=== PATIENT | female | born 1995 | race Two or more races ===

== ENCOUNTER 2020-12-01 00:03 | Emergency (ER) | payer MEDICAID ==
[~2020-12-01] VITALS: Ht 175.3 cm; Wt 71.2 kg
--- NOTE | 2020-12-01 00:27 | Emergency Room Report ---
History of Present Illness General Chief Complaint: Skin Rash/Abscess Source: Patient Present Illness HPI The patient presents with several days of increasing pain in the gluteal cleft. She denies any fevers or chills. She was seen in urgent care and begun on Bactrim Keflex. Pain is severe at this time and she is unable to sleep. She is not taking any medication for pain although she believes that the antibiotics were prescribed to help the pain. She denies any drainage. She is on her menstruation at this time. She denies fevers or chills. There is no numbness. Patient reports that she had this incised and drained 1 time before 8 years ago. The patient is uncertain when her last tetanus vaccination was. The patient denies exposure to Covid positive contacts. Allergies: Coded Allergies: No Known Allergies (Unverified , 12/01/20) COVID-19 Screening Contact w/high risk pt: No Experienced COVID-19 symptoms?: No COVID-19 Testing performed SECTION BEAMER: No Patient History Past Medical History: see triage record Past Surgical History: other - Pilonidal cyst Social History Narrative Brought by father Last Menstrual Period: 11/28/2020 Now: No Reviewed Nursing Documentation: PMH: Agreed; PSxH: Agreed Review of Systems Constitutional: Reports: see HPI Gastrointestinal: Denies: abdominal pain Genitourinary: Reports: see HPI Musculoskeletal: Reports: see HPI Skin: Reports: see HPI Neurological: Reports: see HPI Physical Exam Vital Signs Date Time Temp Pulse Resp B/P (MAP) Pulse Ox O2 Delivery O2 Flow Rate FiO2 12/01/20 00:12 99.3 115 20 119/71 (87) 99 Room Air Sp02 EP Interpretation: reviewed, normal General Appearance: well appearing, no apparent distress, GCS 15, non-toxic Head: normocephalic Eyes: bilateral eye normal inspection, bilateral eye PERRL, bilateral eye EOMI ENT: other - Wearing mask Neck: normal inspection Respiratory: normal inspection Cardiovascular #1: regular rate, rhythm Cardiovascular #2: 2+ radial (L) Gastrointestinal: normal inspection Musculoskeletal: gait/station normal Neurologic: alert Skin: other - Pilonidal swelling without erythema. There is fluctuance and evidence of prior incision and drainage Procedures Incision and Drainage Incision and Drainage : Consent: Verbal Site: Pilonidal cyst Blade Size: 11 I & D Procedure: betadine prep, sterile drapes applied, sterile dressing applied, gauze wick placed Wound Location: other - Gluteal cleft upper Wound's Depth, Shape: superficial Wound Length (cm): 1 - 1.5 Wound Explored: contaminated - Copious amounts of pus obtained Irrigated w/ Saline (ccs): 10 Anesthesia: Lidocaine w/ Epi Volume Anesthetic (ccs): 4 Splint Applied?: No Patient Tolerated: Well Complications: None Medical Decision Making Diagnostic Impression: Primary Impression: Pilonidal abscess ER Course The patient presents with a pilonidal cyst. Due to the fluctuance incision and drainage is indicated. There is no systemic signs of toxicity. The patient will be treated with Percocet. Lidocaine jelly will be applied topically. The wound will be incised and drained. Please see procedure note. Copious amounts of pus obtained. Patient tolerated the procedure well. Discussed treatment plan with patient and the probable need for surgical correction of this lesion. Patient advised to return in 2 days for drain removal and reassessment. Patient stable for outpatient observation and treatment. Last Vital Signs Date Time Temp Pulse Resp B/P (MAP) Pulse Ox O2 Delivery O2 Flow Rate FiO2 12/01/20 00:47 99.3 20 119/71 99 Room Air 12/01/20 00:12 115 Status: improved Disposition: HOME, SELF-CARE Condition: Improved Referrals: NOT CHOSEN IPA/,REFERRING (PCP) Jayson Mejia MD Dec 01, 2020 00:27
[2020-12-01] MEDS ORDERED: Bactrim-DS 1 tab ORAL ONE (00:30)
[2020-12-01] MEDS ORDERED: oxyCODONE HCL/Acetaminophen 5/325mg ORAL ONE (00:30)
[2020-12-01] MEDS ORDERED: Tetanus/Diptheria/Pertussis IM ONE (00:30)
[2020-12-01] MEDS ORDERED: Lidocaine HCl 2% Jelly 6ml Tube TOPIC ONE (00:30)
[2020-12-01] MEDS ORDERED: Lidocaine 1% 10mg/ml/Epi 0.005mg/ml 30ml vial INJ ONE (00:30)
[2020-12-01 00:47] VITALS: BP 119/71
--- NOTE | 2020-12-01 00:53 | NUR ---
pt medicated per dec. in tx rm for eval
[2020-12-01] MEDS ORDERED: Lidocaine 2% MPF 5ml Vial INJ ONE (00:59)
[2020-12-01] MEDS ORDERED: Lidocaine 2% 20mg/ml/Epi 0.005mg/ml 20ml vial ONE (01:02)
--- NOTE | 2020-12-01 01:18 | NUR ---
pt aox3 given and understands dsicharge instructions. ambulatory out with steady gait
== END 2020-12-01 01:25 | disposition home or self-care (01) ==
LOC: EMR 00:22
DX: L05.01 Pilonidal cyst with abscess (principal); Z23 Encounter for immunization
CPT/HCPCS: 10060; 90471; 90715; Z7502; 99282

== ENCOUNTER 2020-12-03 18:32 | Emergency (ER) | payer MEDICAID ==
[~2020-12-03] VITALS: Ht 175.3 cm; Wt 71.2 kg
--- NOTE | 2020-12-03 18:40 | NUR ---
ED Nurse Note: Patient walked into the ED for gauze to be removed as adviced by ERMD at upper gluteal area after abscess removal. Pt denies fever/chills. Pt AAOx4 and ambulatory. ERMD at bedside
--- NOTE | 2020-12-03 18:58 | Emergency Room Report ---
History of Present Illness General Chief Complaint: Wound Recheck/Suture Removal Source: Patient Present Illness HPI Disclaimer: Please note that this report is being documented using [employer] technology. This can lead to erroneous entry secondary to incorrect interpretation by the dictating instrument. HPI: 25-year-old female presents for packing removal from wound. Patient had a pilonidal cyst drained from the left gluteus last week. Gauze wick was placed. She reports continued drainage. Pain is resolved. Continues to take antib iotics. No other symptoms or complaints at this time. PMH: Reviewed PSH: Reviewed Allergies: Reviewed Social Hx: Reviewed Allergies: Coded Allergies: No Known Allergies (Unverified , 12/01/20) COVID-19 Screening Contact w/high risk pt: No Experienced COVID-19 symptoms?: No COVID-19 Testing performed MANAGER FIELD INVESTIGATIONS: No COVID-19 Screening: Negative COVID-19 COVID-19 Testing Source: forum Patient History Now: No Nursing Documentation-PMH Past Medical History: No Stated History Review of Systems All Other Systems: negative except mentioned in HPI Physical Exam Vital Signs Date Time Temp Pulse Resp B/P (MAP) Pulse Ox O2 Delivery O2 Flow Rate FiO2 12/03/20 18:38 98.4 83 20 109/68 (82) 98 General: Awake and alert, no acute distress HEENT: NC/AT. EOMI. Resp: Normal work of breathing Skin: Gauze wick is in place in the gluteal fold wound. Mild serous drainage. Mild surrounding edema and induration. No palpable warmth. No bleeding. MSK: Normal tone and bulk. Moving all extremities. No obvious deformity. Neuro: Awake and alert. Mentating appropriately Medical Decision Making Diagnostic Impression: Primary Impression: Encounter for wound re-check ER Course 25-year-old female presents for packing removal of pilonidal cyst drainage site. Gauze wick was removed without complication. Able to express some mild amount of serous fluid. No significant purulent drainage or bleeding. Her pain is resolved. She continues on antibiotics. Clean dressing applied. Will follow up with PMD and return with new or worsening symptoms. Last Vital Signs Date Time Temp Pulse Resp B/P (MAP) Pulse Ox O2 Delivery O2 Flow Rate FiO2 12/03/20 18:38 98.4 83 20 109/68 (82) 98 Disposition: HOME, SELF-CARE Condition: Stable Referrals: NOT CHOSEN IPA/,REFERRING (PCP) Jeremías Matias MD Dec 03, 2020 18:57
--- NOTE | 2020-12-03 19:20 | NUR ---
ER DISCHARGE NOTE: Patient is cleared to be discharged per ERMD, pt is aox4, on room air, with stable vital signs. pt was given dc and prescription instructions, pt was able to verbalize understanding, pt id band removed. pt is able to ambulate with steady gait. pt took all belongings.
[2020-12-03 20:01] VITALS: BP 109/68
== END 2020-12-03 19:20 | disposition home or self-care (01) ==
LOC: EMR 18:40
DX: Z48.01 Encounter for change or removal of surgical wound dressing (principal)
CPT/HCPCS: 99281